=== PATIENT | male | born 1970 | race Caucasian/White ===

== ENCOUNTER 2019-12-22 09:56 | Inpatient (IN) | payer BC, MEDICAID ==
[~2019-12-22] VITALS: Ht 190.5 cm; Wt 126.3 kg
--- NOTE | 2019-12-22 10:14 | NUR ---
Transfer from [facility] for renal failure. Hx HTN, methamphetamine use, CHF, hepatitis (per transfer paperwork-pt denies)&1ppd smoking hx. +Orthopnea, s/s improved with elevation of HOB & 3 liters oxygen via NC. EKG performed at time of arrival. Cardiac, NiBP & SPO2 monitor applied. Call light within reach, SR up x 2. NS IV lock IP.
[2019-12-22] MEDS ORDERED: DEXAMETHASONE 4 MG/ML, 1ML PO ONE (11:00)
--- NOTE | 2019-12-22 11:03 | NUR ---
2nd IV est, labs drawn. COVID swab obtained, labeled & sent.
[2019-12-22 11:19] LABS: BASOPHILS # (AUTO) 0.04 x10^3/uL (0-0.1); BASOPHILS % (AUTO) 1 % (0-1); EOSINOPHILS # (AUTO) 0.17 x10^3/uL (0-0.4); EOSINOPHILS % (AUTO) 2 % (1-7); LYMPHOCYTES % (AUTO) 9 % (22-44); MD NO; MEAN CORPUSCULAR HEMOGLOBIN 27.7 pg (27.5-34.5); MEAN CORPUSCULAR HGB CONC 32.2 g/dL (33.2-36.2); MEAN CORPUSCULAR VOLUME 85.9 fL (81-97); MEAN PLATELET VOLUME 7.2 fL (7.4-10.4); MONOCYTES # (AUTO) 0.51 x10^3/uL (0.2-0.8); MONOCYTES % (AUTO) 7 % (2-9); NEUTROPHILS # (AUTO) 6.43 x10^3/uL (1.8-6.8); NEUTROPHILS % (AUTO) 82 % (42-75); PLATELET COUNT 298 x10^3/uL (130-400); RED BLOOD COUNT 3.23 x10^6/uL (4.38-5.82); RED CELL DISTRIBUTION WIDTH 14.4 % (9.4-14.8)
--- NOTE | 2019-12-22 11:28 | NUR ---
SPO2 intermittently decreases while at rest. Increases when awakened.
[2019-12-22 11:31] LABS: ALANINE AMINOTRANSFERASE 32 U/L (12-78); ALBUMIN 2.7 g/dL (3.4-5.0); ANION GAP 11 mmol/L (5-15); CALCIUM 6.4 mg/dL (8.5-10.1); CHLORIDE 113 mmol/L (98-107); CREATININE 7.38 mg/dL (0.7-1.3)
[2019-12-22 11:35] LABS: ALKALINE PHOSPHATASE 102 U/L (45-117); BILIRUBIN,TOTAL 0.4 mg/dL (0.2-1.0); TOTAL PROTEIN 6.5 g/dL (6.4-8.2)
--- NOTE | 2019-12-22 11:37 | NUR ---
critical value taken from lab, relayed to BAN Fallon.
[2019-12-22 11:38] LABS: TROPONIN I 0.296 ng/mL (0.000-0.045)
--- NOTE | 2019-12-22 12:11 | NUR ---
Pt seen by Dr. Wallace. Awaiting admit orders/bed assignment.
--- NOTE | 2019-12-22 12:29 | NUR ---
I&O recorded. UA sent & add'l labs drawn off of IV lock. Pt updated on POC. ECHO IP.
[2019-12-22] MEDS ORDERED: ACETAMINOPHEN 325 MG TABLET PO PRN (12:30)
[2019-12-22] MEDS ORDERED: CALCIUM GLUCONATE 4.6 MEQ/10 ML IVPush ONE (12:30)
[2019-12-22] MEDS ORDERED: ONDANSETRON 2MG/ML, 2ML IVPush PRN (12:30)
[2019-12-22] MEDS ORDERED: OXYcodone IR 5MG TABLET PO PRN (12:30)
[2019-12-22] MEDS ORDERED: ONDANSETRON ODT 4 MG PO PRN (12:30)
[2019-12-22 12:48] LABS: MICROSCOPIC AUTO
[2019-12-22 12:52] LABS: CHLORIDE,URINE RANDOM 52 mmol/L; POTASSIUM,URINE RANDOM 22 mmol/L; SODIUM,URINE RANDOM 66 mmol/L
[2019-12-22 12:56] LABS: CULTURE INDICATED? NO
--- NOTE | 2019-12-22 13:15 | NUR ---
Pt being set up for temporary dialysis catheter. Verb. consent given.
[2019-12-22] MEDS ORDERED: CALCIUM GLUCONATE 4.6 MEQ/10 ML ONE (13:23)
[2019-12-22] MEDS ORDERED: AMLODIPINE 5 MG TABLET ONE (13:23)
--- NOTE | 2019-12-22 13:34 | NUR ---
Radiologist here for insertion of temp. dialysis catheter. Report to STEPHANIE Mitchell
[2019-12-22 14:00] VITALS: BP 165/117
[2019-12-22] MEDS: AMLODIPINE 10 MG TAB PO SCH ×2 (14:06→14:49)
[2019-12-22] MEDS: BACLOFEN 10 MG TABLET PO PRN (14:06)
--- NOTE | 2019-12-22 14:07 | NUR ---
Per Dr. Richar [facility] due to dialysis being done today. Pt medicated for chronic back pain w/ baclofen po. Post dialysis catheter placement x-ray complete.
[2019-12-22] MEDS: HEPARIN 5,000 UNITS/ML, 1ML SQ SCH (15:09)
[2019-12-22] MEDS: hydrALAzine 20 MG/ML, 1ML IVPush PRN (16:16)
[2019-12-22 18:44] LABS: TROPONIN I 0.296 ng/mL (0.000-0.045)
[2019-12-22 21:47] VITALS: BP 145/92
[2019-12-22] MEDS: HYDROcodone/APAP 5/325 TABLET PO PRN (21:53)
[2019-12-22] MEDS: NICOTINE 14MG/24 HR PATCH.TD24 TD SCH (22:47)
[2019-12-22 22:50] VITALS: BP 163/91
[2019-12-23] MEDS: BACLOFEN 10 MG TABLET PO PRN (00:42)
[2019-12-23 00:46] LABS: TROPONIN I 0.271 ng/mL (0.000-0.045)
[2019-12-23 02:36] VITALS: BP 156/87
[2019-12-23] MEDS: HEPARIN 5,000 UNITS/ML, 1ML SQ SCH ×3 (03:05→19:21)
[2019-12-23 04:59] LABS: BASOPHILS # (AUTO) 0.04 x10^3/uL (0-0.1); BASOPHILS % (AUTO) 1 % (0-1); EOSINOPHILS % (AUTO) 3 % (1-7); LYMPHOCYTES # (AUTO) 0.99 x10^3/uL (1-3.4); LYMPHOCYTES % (AUTO) 14 % (22-44); MD NO; MEAN CORPUSCULAR HEMOGLOBIN 27.6 pg (27.5-34.5); MEAN CORPUSCULAR HGB CONC 32.1 g/dL (33.2-36.2); MEAN CORPUSCULAR VOLUME 85.9 fL (81-97); MEAN PLATELET VOLUME 7.2 fL (7.4-10.4); MONOCYTES # (AUTO) 0.68 x10^3/uL (0.2-0.8); MONOCYTES % (AUTO) 9 % (2-9); NEUTROPHILS # (AUTO) 5.41 x10^3/uL (1.8-6.8); NEUTROPHILS % (AUTO) 74 % (42-75); PLATELET COUNT 280 x10^3/uL (130-400); RED BLOOD COUNT 3.24 x10^6/uL (4.38-5.82); RED CELL DISTRIBUTION WIDTH 14.3 % (9.4-14.8)
[2019-12-23 05:08] LABS: ANION GAP 10 mmol/L (5-15); CALCIUM 7.1 mg/dL (8.5-10.1); CHLORIDE 110 mmol/L (98-107); CREATININE 6.09 mg/dL (0.7-1.3)
[2019-12-23] MEDS: HYDROcodone/APAP 5/325 TABLET PO PRN ×3 (06:28→19:22)
[2019-12-23 09:13] VITALS: BP 132/78
[2019-12-23] MEDS ORDERED: IRON DEXTRAN COMPLEX 25 MG in SODIUM CHLORIDE 0.9% 50 ML IV ONE (12:00)
[2019-12-23 12:04] VITALS: BP 173/108
[2019-12-23] MEDS: hydrALAzine 20 MG/ML, 1ML IVPush PRN (12:13)
[2019-12-23] MEDS ORDERED: EPINEPHRINE 1 MG/ML, 1ML SQ PRN (12:30)
[2019-12-23 12:54] VITALS: BP 149/87
[2019-12-23] MEDS ORDERED: IRON DEXTRAN COMPLEX 2,250 MG in SODIUM CHLORIDE 0.9% 250 ML IV ONE (13:30)
[2019-12-23] MEDS: METOPROLOL TARTRATE 25 MG TAB PO SCH (17:25)
[2019-12-23 18:58] VITALS: BP 135/82
[2019-12-23] MEDS ORDERED: DIPHENHYDRAMINE 25 MG CAPSULE PO ONE (23:00)
[2019-12-23] MEDS: NICOTINE 14MG/24 HR PATCH.TD24 TD SCH (23:12)
[2019-12-24 01:41] VITALS: BP 141/89
[2019-12-24] MEDS: HYDROcodone/APAP 5/325 TABLET PO PRN ×2 (02:49→18:24)
[2019-12-24] MEDS: HEPARIN 5,000 UNITS/ML, 1ML SQ SCH ×3 (03:32→20:16)
[2019-12-24] MEDS: METOPROLOL TARTRATE 25 MG TAB PO SCH ×2 (05:37→18:18)
[2019-12-24 06:10] LABS: BASOPHILS # (AUTO) 0.04 x10^3/uL (0-0.1); BASOPHILS % (AUTO) 1 % (0-1); EOSINOPHILS # (AUTO) 0.16 x10^3/uL (0-0.4); EOSINOPHILS % (AUTO) 2 % (1-7); LYMPHOCYTES # (AUTO) 1.03 x10^3/uL (1-3.4); LYMPHOCYTES % (AUTO) 14 % (22-44); MD NO; MEAN CORPUSCULAR HEMOGLOBIN 28.2 pg (27.5-34.5); MEAN CORPUSCULAR HGB CONC 32.4 g/dL (33.2-36.2); MEAN PLATELET VOLUME 7.8 fL (7.4-10.4); MONOCYTES # (AUTO) 0.77 x10^3/uL (0.2-0.8); MONOCYTES % (AUTO) 11 % (2-9); NEUTROPHILS # (AUTO) 5.18 x10^3/uL (1.8-6.8); NEUTROPHILS % (AUTO) 72 % (42-75); PLATELET COUNT 260 x10^3/uL (130-400); RED BLOOD COUNT 3.06 x10^6/uL (4.38-5.82); RED CELL DISTRIBUTION WIDTH 15.2 % (9.4-14.8)
[2019-12-24 06:26] LABS: CHLORIDE 109 mmol/L (98-107)
[2019-12-24 06:30] LABS: ANION GAP 7 mmol/L (5-15); CALCIUM 6.6 mg/dL (8.5-10.1); CREATININE 6.45 mg/dL (0.7-1.3)
[2019-12-24 06:33] VITALS: BP 153/100
[2019-12-24 12:19] VITALS: BP 155/95
[2019-12-24] MEDS: DOCUSATE 100 MG CAPSULE PO SCH ×2 (12:19→20:16)
[2019-12-24] MEDS: ARANESP 60 MCG/ML **ESRD SQ SCH (12:19)
[2019-12-24] MEDS: AMLODIPINE 10 MG TAB PO SCH (12:19)
[2019-12-24 18:20] VITALS: BP 148/86
[2019-12-24] MEDS: NICOTINE 14MG/24 HR PATCH.TD24 TD SCH (23:26)
[2019-12-25] MEDS: DIPHENHYDRAMINE 25 MG CAPSULE PO PRN ×2 (00:46→22:24)
[2019-12-25] MEDS: HYDROcodone/APAP 5/325 TABLET PO PRN ×3 (00:46→20:47)
[2019-12-25 01:09] VITALS: BP 144/82
[2019-12-25] MEDS: morphine SULFATE 10 MG/ML, 1ML IVPush PRN ×3 (01:41→23:24)
[2019-12-25] MEDS: HEPARIN 5,000 UNITS/ML, 1ML SQ SCH ×3 (05:04→20:20)
[2019-12-25] MEDS: METOPROLOL TARTRATE 25 MG TAB PO SCH ×2 (05:04→18:12)
[2019-12-25 06:08] LABS: BASOPHILS # (AUTO) 0.01 x10^3/uL (0-0.1); BASOPHILS % (AUTO) 0 % (0-1); EOSINOPHILS # (AUTO) 0.19 x10^3/uL (0-0.4); EOSINOPHILS % (AUTO) 3 % (1-7); LYMPHOCYTES # (AUTO) 1.14 x10^3/uL (1-3.4); LYMPHOCYTES % (AUTO) 17 % (22-44); MD NO; MEAN CORPUSCULAR HEMOGLOBIN 28.4 pg (27.5-34.5); MEAN CORPUSCULAR HGB CONC 32.9 g/dL (33.2-36.2); MEAN CORPUSCULAR VOLUME 86.1 fL (81-97); MEAN PLATELET VOLUME 7.9 fL (7.4-10.4); MONOCYTES # (AUTO) 0.56 x10^3/uL (0.2-0.8); MONOCYTES % (AUTO) 8 % (2-9); NEUTROPHILS # (AUTO) 4.96 x10^3/uL (1.8-6.8); NEUTROPHILS % (AUTO) 72 % (42-75); PLATELET COUNT 232 x10^3/uL (130-400); RED BLOOD COUNT 3.06 x10^6/uL (4.38-5.82); RED CELL DISTRIBUTION WIDTH 14.7 % (9.4-14.8)
[2019-12-25 06:16] LABS: ANION GAP 7 mmol/L (5-15); CALCIUM 7.2 mg/dL (8.5-10.1); CHLORIDE 110 mmol/L (98-107); CREATININE 5.47 mg/dL (0.7-1.3)
[2019-12-25 06:41] VITALS: BP 156/92
[2019-12-25] MEDS: AMLODIPINE 10 MG TAB PO SCH (08:02)
[2019-12-25] MEDS: DOCUSATE 100 MG CAPSULE PO SCH ×2 (08:02→20:20)
[2019-12-25] MEDS: FERROUS SULFATE 325 MG TABLET PO SCH (08:02)
[2019-12-25 12:04] VITALS: BP 159/88
[2019-12-25 18:47] VITALS: BP 154/82
[2019-12-25] MEDS: NICOTINE 14MG/24 HR PATCH.TD24 TD SCH (22:24)
[2019-12-26 02:31] VITALS: BP 161/88
[2019-12-26] MEDS: morphine SULFATE 10 MG/ML, 1ML IVPush PRN ×2 (02:35→20:28)
[2019-12-26] MEDS: METOPROLOL TARTRATE 25 MG TAB PO SCH ×2 (05:23→17:28)
[2019-12-26] MEDS: HEPARIN 5,000 UNITS/ML, 1ML SQ SCH ×3 (05:23→20:28)
[2019-12-26 06:18] VITALS: BP 163/110
[2019-12-26] MEDS: hydrALAzine 20 MG/ML, 1ML IVPush PRN (06:23)
[2019-12-26 06:24] LABS: BASOPHILS # (AUTO) 0.04 x10^3/uL (0-0.1); BASOPHILS % (AUTO) 1 % (0-1); EOSINOPHILS # (AUTO) 0.19 x10^3/uL (0-0.4); EOSINOPHILS % (AUTO) 3 % (1-7); LYMPHOCYTES # (AUTO) 1.05 x10^3/uL (1-3.4); LYMPHOCYTES % (AUTO) 15 % (22-44); MD NO; MEAN CORPUSCULAR HGB CONC 32.1 g/dL (33.2-36.2); MEAN CORPUSCULAR VOLUME 87.2 fL (81-97); MEAN PLATELET VOLUME 7.5 fL (7.4-10.4); MONOCYTES # (AUTO) 0.68 x10^3/uL (0.2-0.8); MONOCYTES % (AUTO) 10 % (2-9); NEUTROPHILS # (AUTO) 5.07 x10^3/uL (1.8-6.8); NEUTROPHILS % (AUTO) 72 % (42-75); PLATELET COUNT 233 x10^3/uL (130-400); RED CELL DISTRIBUTION WIDTH 14.7 % (9.4-14.8)
[2019-12-26 06:39] LABS: CHLORIDE 111 mmol/L (98-107)
[2019-12-26 06:45] LABS: ANION GAP 7 mmol/L (5-15); CALCIUM 7.7 mg/dL (8.5-10.1); CREATININE 5.89 mg/dL (0.7-1.3)
[2019-12-26 12:25] VITALS: BP 177/100
[2019-12-26] MEDS: DOCUSATE 100 MG CAPSULE PO SCH ×2 (12:44→20:29)
[2019-12-26] MEDS: AMLODIPINE 10 MG TAB PO SCH (12:44)
[2019-12-26] MEDS: FERROUS SULFATE 325 MG TABLET PO SCH (12:48)
[2019-12-26 15:50] VITALS: BP 145/75
[2019-12-26 20:19] VITALS: BP 191/113
[2019-12-26] MEDS: DIPHENHYDRAMINE 25 MG CAPSULE PO PRN (20:29)
[2019-12-26] MEDS: DOXAZOSIN 1MG TABLET PO SCH (20:31)
[2019-12-27] MEDS: morphine SULFATE 10 MG/ML, 1ML IVPush PRN ×2 (00:29→03:35)
[2019-12-27] MEDS: NICOTINE 14MG/24 HR PATCH.TD24 TD SCH ×2 (00:29→23:00)
[2019-12-27 00:30] VITALS: BP 175/92
[2019-12-27] MEDS: hydrALAzine 20 MG/ML, 1ML IVPush PRN (00:34)
[2019-12-27 03:49] LABS: BASOPHILS # (AUTO) 0.05 x10^3/uL (0-0.1); BASOPHILS % (AUTO) 1 % (0-1); EOSINOPHILS # (AUTO) 0.19 x10^3/uL (0-0.4); EOSINOPHILS % (AUTO) 3 % (1-7); LYMPHOCYTES # (AUTO) 0.97 x10^3/uL (1-3.4); LYMPHOCYTES % (AUTO) 14 % (22-44); MD NO; MEAN CORPUSCULAR HEMOGLOBIN 27.9 pg (27.5-34.5); MEAN CORPUSCULAR HGB CONC 32.5 g/dL (33.2-36.2); MEAN CORPUSCULAR VOLUME 85.9 fL (81-97); MEAN PLATELET VOLUME 7.7 fL (7.4-10.4); MONOCYTES # (AUTO) 0.82 x10^3/uL (0.2-0.8); MONOCYTES % (AUTO) 12 % (2-9); NEUTROPHILS # (AUTO) 5.05 x10^3/uL (1.8-6.8); NEUTROPHILS % (AUTO) 71 % (42-75); PLATELET COUNT 208 x10^3/uL (130-400); RED BLOOD COUNT 3.22 x10^6/uL (4.38-5.82); RED CELL DISTRIBUTION WIDTH 14.9 % (9.4-14.8)
[2019-12-27 03:56] LABS: ALANINE AMINOTRANSFERASE 27 U/L (12-78); ALBUMIN 2.9 g/dL (3.4-5.0); ANION GAP 6 mmol/L (5-15); CALCIUM 7.7 mg/dL (8.5-10.1); CHLORIDE 109 mmol/L (98-107); CREATININE 5.15 mg/dL (0.7-1.3)
[2019-12-27 03:58] LABS: ALKALINE PHOSPHATASE 93 U/L (45-117); BILIRUBIN,TOTAL 0.2 mg/dL (0.2-1.0)
[2019-12-27] MEDS: METOPROLOL TARTRATE 25 MG TAB PO SCH ×2 (05:12→18:31)
[2019-12-27] MEDS: HEPARIN 5,000 UNITS/ML, 1ML SQ SCH ×3 (05:12→21:25)
[2019-12-27 07:31] VITALS: BP 152/96
[2019-12-27] MEDS: AMLODIPINE 10 MG TAB PO SCH (08:03)
[2019-12-27] MEDS: FERROUS SULFATE 325 MG TABLET PO SCH (08:03)
[2019-12-27] MEDS: DOCUSATE 100 MG CAPSULE PO SCH ×2 (08:03→21:25)
[2019-12-27] MEDS: HYDROcodone/APAP 5/325 TABLET PO PRN (08:13)
[2019-12-27 14:01] LABS: AMPHETAMINE SCREEN, URINE Negative (Negative); BARBITURATE SCREEN, URINE Negative (Negative); BENZODIAZEPINE SCREEN, URINE Negative (Negative); CANNABINOID SCREEN, URINE Negative (Negative); COCAINE SCREEN, URINE Negative (Negative); METHADONE SCREEN, URINE Negative (Negative); OPIATE SCREEN, URINE Positive (Negative)
[2019-12-27 14:15] VITALS: BP 162/97
[2019-12-27 20:07] VITALS: BP 165/110
[2019-12-27] MEDS: DOXAZOSIN 1MG TABLET PO SCH (21:26)
[2019-12-28 00:18] VITALS: BP 145/85
[2019-12-28] MEDS: morphine SULFATE 10 MG/ML, 1ML IVPush PRN ×5 (02:20→23:55)
[2019-12-28] MEDS: METOPROLOL TARTRATE 25 MG TAB PO SCH ×2 (05:27→17:19)
[2019-12-28] MEDS: HEPARIN 5,000 UNITS/ML, 1ML SQ SCH ×3 (05:28→21:00)
[2019-12-28 05:58] LABS: BASOPHILS # (AUTO) 0.05 x10^3/uL (0-0.1); BASOPHILS % (AUTO) 1 % (0-1); EOSINOPHILS # (AUTO) 0.25 x10^3/uL (0-0.4); EOSINOPHILS % (AUTO) 4 % (1-7); LYMPHOCYTES # (AUTO) 1.15 x10^3/uL (1-3.4); LYMPHOCYTES % (AUTO) 16 % (22-44); MD NO; MEAN CORPUSCULAR HEMOGLOBIN 28.2 pg (27.5-34.5); MEAN CORPUSCULAR HGB CONC 32.9 g/dL (33.2-36.2); MEAN CORPUSCULAR VOLUME 85.8 fL (81-97); MEAN PLATELET VOLUME 7.9 fL (7.4-10.4); MONOCYTES # (AUTO) 0.63 x10^3/uL (0.2-0.8); MONOCYTES % (AUTO) 9 % (2-9); NEUTROPHILS # (AUTO) 5.09 x10^3/uL (1.8-6.8); NEUTROPHILS % (AUTO) 71 % (42-75); PLATELET COUNT 216 x10^3/uL (130-400); RED BLOOD COUNT 3.25 x10^6/uL (4.38-5.82); RED CELL DISTRIBUTION WIDTH 14.9 % (9.4-14.8)
[2019-12-28 06:03] LABS: ANION GAP 8 mmol/L (5-15); CALCIUM 8.1 mg/dL (8.5-10.1); CHLORIDE 110 mmol/L (98-107); CREATININE 5.98 mg/dL (0.7-1.3)
[2019-12-28] MEDS: DOCUSATE 100 MG CAPSULE PO SCH ×2 (09:00→20:58)
[2019-12-28 12:49] VITALS: BP 158/99
[2019-12-28] MEDS ORDERED: LIDOCAINE 1%, 20ML ONE (15:07)
[2019-12-28] MEDS ORDERED: FLUMAZENIL 0.1 MG/1 ML, 5ML ONE (15:22)
[2019-12-28] MEDS ORDERED: FENTANYL PF 100 MCG/2ML ONE (15:22)
[2019-12-28] MEDS ORDERED: NALOXONE 1 MG/ML, 2ML ONE (15:22)
[2019-12-28] MEDS ORDERED: MIDAZOLAM 1 MG/ML, 5ML ONE (15:22)
[2019-12-28] MEDS ORDERED: CEFAZOLIN PMX 1GM/50ML 50 ML ONE (15:28)
[2019-12-28] MEDS: FERROUS SULFATE 325 MG TABLET PO SCH (17:18)
[2019-12-28] MEDS: AMLODIPINE 10 MG TAB PO SCH (17:18)
[2019-12-28 19:19] VITALS: BP 125/75
[2019-12-28] MEDS: DOXAZOSIN 1MG TABLET PO SCH (21:00)
[2019-12-28] MEDS: NICOTINE 14MG/24 HR PATCH.TD24 TD SCH (23:14)
[2019-12-29 01:28] VITALS: BP 129/72
[2019-12-29] MEDS: morphine SULFATE 10 MG/ML, 1ML IVPush PRN ×3 (03:06→21:52)
[2019-12-29] MEDS: HEPARIN 5,000 UNITS/ML, 1ML SQ SCH ×3 (05:50→20:21)
[2019-12-29] MEDS: METOPROLOL TARTRATE 25 MG TAB PO SCH ×2 (05:51→18:05)
[2019-12-29 08:33] VITALS: BP 126/81
[2019-12-29] MEDS: DOCUSATE 100 MG CAPSULE PO SCH ×2 (08:43→20:21)
[2019-12-29] MEDS: FERROUS SULFATE 325 MG TABLET PO SCH (08:43)
[2019-12-29] MEDS: AMLODIPINE 10 MG TAB PO SCH (08:43)
[2019-12-29] MEDS: MULTIVITS,STRESS FORMULA 1 TABLET PO SCH (08:43)
[2019-12-29] MEDS: CHOLECALCIFEROL 400 UNITS TABLET PO SCH (08:43)
[2019-12-29] MEDS: ASCORBIC ACID 500 MG TABLET PO SCH ×2 (08:45→18:06)
[2019-12-29 14:06] VITALS: BP 111/67
[2019-12-29 19:03] VITALS: BP 120/80
[2019-12-29 19:22] VITALS: BP 156/93
[2019-12-29] MEDS: DOXAZOSIN 1MG TABLET PO SCH (20:21)
[2019-12-29] MEDS: NICOTINE 14MG/24 HR PATCH.TD24 TD SCH (22:46)
[2019-12-30] MEDS: morphine SULFATE 10 MG/ML, 1ML IVPush PRN ×2 (01:19→04:45)
[2019-12-30 02:00] VITALS: BP 130/85
[2019-12-30] MEDS: HEPARIN 5,000 UNITS/ML, 1ML SQ SCH ×2 (05:55→17:24)
[2019-12-30] MEDS: METOPROLOL TARTRATE 25 MG TAB PO SCH ×2 (05:57→17:26)
[2019-12-30 06:15] VITALS: BP 132/82
[2019-12-30 06:28] LABS: BASOPHILS # (AUTO) 0.04 x10^3/uL (0-0.1); BASOPHILS % (AUTO) 1 % (0-1); EOSINOPHILS # (AUTO) 0.24 x10^3/uL (0-0.4); EOSINOPHILS % (AUTO) 3 % (1-7); LYMPHOCYTES # (AUTO) 1.35 x10^3/uL (1-3.4); LYMPHOCYTES % (AUTO) 17 % (22-44); MD NO; MEAN CORPUSCULAR HEMOGLOBIN 28.1 pg (27.5-34.5); MEAN CORPUSCULAR HGB CONC 32.3 g/dL (33.2-36.2); MEAN CORPUSCULAR VOLUME 86.9 fL (81-97); MEAN PLATELET VOLUME 7.3 fL (7.4-10.4); MONOCYTES # (AUTO) 0.88 x10^3/uL (0.2-0.8); MONOCYTES % (AUTO) 11 % (2-9); NEUTROPHILS # (AUTO) 5.31 x10^3/uL (1.8-6.8); NEUTROPHILS % (AUTO) 68 % (42-75); PLATELET COUNT 205 x10^3/uL (130-400); RED CELL DISTRIBUTION WIDTH 14.9 % (9.4-14.8)
[2019-12-30 06:40] LABS: ALBUMIN 3.1 g/dL (3.4-5.0); ANION GAP 9 mmol/L (5-15); CALCIUM 7.7 mg/dL (8.5-10.1); CHLORIDE 106 mmol/L (98-107)
[2019-12-30 06:41] LABS: CREATININE 6.54 mg/dL (0.7-1.3)
[2019-12-30 08:26] VITALS: BP 149/84
[2019-12-30] MEDS: AMLODIPINE 10 MG TAB PO SCH (08:28)
[2019-12-30] MEDS: DOCUSATE 100 MG CAPSULE PO SCH ×2 (08:28→21:20)
[2019-12-30] MEDS: CHOLECALCIFEROL 400 UNITS TABLET PO SCH (08:28)
[2019-12-30] MEDS: MULTIVITS,STRESS FORMULA 1 TABLET PO SCH (08:28)
[2019-12-30] MEDS: FERROUS SULFATE 325 MG TABLET PO SCH (08:29)
[2019-12-30] MEDS: ASCORBIC ACID 500 MG TABLET PO SCH ×2 (08:29→17:24)
[2019-12-30 12:04] VITALS: BP 133/66
[2019-12-30] MEDS ORDERED: POLYETHYLENE GLYCOL 17 GM PACKET ONE (17:58)
[2019-12-30] MEDS ORDERED: BISACODYL 10 MG SUPP PR PRN (18:00)
[2019-12-30] MEDS: POLYETHYLENE GLYCOL 17 GM PACKET PO PRN (18:00)
[2019-12-30 18:58] VITALS: BP 130/80
[2019-12-30] MEDS: DOXAZOSIN 1MG TABLET PO SCH (21:19)
[2019-12-30] MEDS: NICOTINE 14MG/24 HR PATCH.TD24 TD SCH (23:29)
[2019-12-31 00:39] VITALS: BP 137/86
[2019-12-31] MEDS: HEPARIN 5,000 UNITS/ML, 1ML SQ SCH ×3 (01:16→16:16)
[2019-12-31] MEDS: morphine SULFATE 10 MG/ML, 1ML IVPush PRN ×2 (01:20→06:17)
[2019-12-31] MEDS: METOPROLOL TARTRATE 25 MG TAB PO SCH ×2 (05:24→16:16)
[2019-12-31 06:40] VITALS: BP 121/74
[2019-12-31] MEDS: MULTIVITS,STRESS FORMULA 1 TABLET PO SCH (07:54)
[2019-12-31] MEDS: ASCORBIC ACID 500 MG TABLET PO SCH ×2 (07:54→16:15)
[2019-12-31] MEDS: FERROUS SULFATE 325 MG TABLET PO SCH (07:54)
[2019-12-31] MEDS: CHOLECALCIFEROL 400 UNITS TABLET PO SCH (07:54)
[2019-12-31] MEDS: DOCUSATE 100 MG CAPSULE PO SCH ×2 (07:54→20:54)
[2019-12-31] MEDS: AMLODIPINE 10 MG TAB PO SCH (07:54)
[2019-12-31] MEDS: ARANESP 60 MCG/ML **ESRD SQ SCH (12:01)
[2019-12-31 12:10] VITALS: BP 121/75
[2019-12-31 19:13] VITALS: BP 153/85
[2019-12-31] MEDS: DOXAZOSIN 1MG TABLET PO SCH (20:54)
[2019-12-31 20:56] VITALS: BP 133/77
[2020-01-01] MEDS: HEPARIN 5,000 UNITS/ML, 1ML SQ SCH ×4 (00:09→23:34)
[2020-01-01] MEDS: NICOTINE 14MG/24 HR PATCH.TD24 TD SCH ×2 (00:10→20:19)
[2020-01-01 00:18] VITALS: BP 120/74
[2020-01-01] MEDS: HYDROcodone/APAP 5/325 TABLET PO PRN (00:52)
[2020-01-01 05:37] VITALS: BP 153/88
[2020-01-01] MEDS: METOPROLOL TARTRATE 25 MG TAB PO SCH ×2 (05:38→16:59)
[2020-01-01 07:25] VITALS: BP 113/69
[2020-01-01] MEDS: CHOLECALCIFEROL 400 UNITS TABLET PO SCH (08:02)
[2020-01-01] MEDS: FERROUS SULFATE 325 MG TABLET PO SCH (08:02)
[2020-01-01] MEDS: DOCUSATE 100 MG CAPSULE PO SCH ×2 (08:02→20:17)
[2020-01-01] MEDS: ASCORBIC ACID 500 MG TABLET PO SCH ×2 (08:02→16:59)
[2020-01-01] MEDS: AMLODIPINE 10 MG TAB PO SCH (08:02)
[2020-01-01] MEDS: MULTIVITS,STRESS FORMULA 1 TABLET PO SCH (08:02)
[2020-01-01 08:03] LABS: ALBUMIN 3.3 g/dL (3.4-5.0); ANION GAP 9 mmol/L (5-15); CALCIUM 8.1 mg/dL (8.5-10.1); CHLORIDE 106 mmol/L (98-107)
[2020-01-01 14:29] VITALS: BP 106/69
[2020-01-01 16:58] VITALS: BP 105/71
[2020-01-01 20:08] VITALS: BP 132/84
[2020-01-01] MEDS: DOXAZOSIN 1MG TABLET PO SCH (20:17)
[2020-01-02 02:00] VITALS: BP 148/82
[2020-01-02] MEDS: POLYETHYLENE GLYCOL 17 GM PACKET PO PRN (02:19)
[2020-01-02] MEDS: METOPROLOL TARTRATE 25 MG TAB PO SCH (05:17)
[2020-01-02 07:18] VITALS: BP 138/79
[2020-01-02] MEDS: CHOLECALCIFEROL 400 UNITS TABLET PO SCH (08:01)
[2020-01-02] MEDS: AMLODIPINE 10 MG TAB PO SCH (08:01)
[2020-01-02] MEDS: DOCUSATE 100 MG CAPSULE PO SCH (08:01)
[2020-01-02] MEDS: FERROUS SULFATE 325 MG TABLET PO SCH (08:01)
[2020-01-02] MEDS: ASCORBIC ACID 500 MG TABLET PO SCH (08:01)
[2020-01-02] MEDS: MULTIVITS,STRESS FORMULA 1 TABLET PO SCH (08:01)
[2020-01-02] MEDS: HEPARIN 5,000 UNITS/ML, 1ML SQ SCH (08:02)
[2020-01-02] MEDS ORDERED: ERGOCALCIFEROL 50,000 UNIT CAPSULE PO SCH (11:30)
[2020-01-02] MEDS ORDERED: CARVEDILOL 6.25 MG TABLET PO SCH (18:00)
[2020-01-02] MEDS ORDERED: DOXAZOSIN 1MG TABLET PO SCH ×2 (21:00)
== END 2020-01-02 13:51 | disposition left against medical advice (07) | DRG 682 ==
LOC: ED 10:01 → SUATTDRO 11:43 → EDIP 12:11 → ICU 14:23 → 4EST 22:40
PROVIDERS: ADMIT Hospitalist; ATTEND Family Medicine
PROC: 02HV33Z Insertion of Infusion Device into Superior Vena Cava, Percutaneous Approach (ICD-10-PCS; principal; 2019-12-22)
PROC: B548ZZA Ultrasonography of Superior Vena Cava, Guidance (ICD-10-PCS; 2019-12-22)
PROC: 05HY33Z Insertion of Infusion Device into Upper Vein, Percutaneous Approach (ICD-10-PCS; 2019-12-28)
PROC: B543ZZA Ultrasonography of Right Jugular Veins, Guidance (ICD-10-PCS; 2019-12-28)
PROC: B5131ZA Fluoroscopy of Right Jugular Veins using Low Osmolar Contrast, Guidance (ICD-10-PCS; 2019-12-28)
DX: N17.9 Acute kidney failure, unspecified (principal); J96.01 Acute respiratory failure with hypoxia; E87.2 Acidosis; I13.2 Hypertensive heart and chronic kidney disease with heart failure and with stage 5 chronic kidney disease, or end stage renal disease; N18.6 End stage renal disease; D50.9 Iron deficiency anemia, unspecified; D63.8 Anemia in other chronic diseases classified elsewhere; E78.00 Pure hypercholesterolemia, unspecified; E83.51 Hypocalcemia; E87.5 Hyperkalemia; F15.10 Other stimulant abuse, uncomplicated; F17.200 Nicotine dependence, unspecified, uncomplicated; Z53.29 Procedure and treatment not carried out because of patient's decision for other reasons; G89.29 Other chronic pain; I36.1 Nonrheumatic tricuspid (valve) insufficiency; N32.89 Other specified disorders of bladder; I50.9 Heart failure, unspecified; Z78.9 Other specified health status; Z79.899 Other long term (current) drug therapy; Z91.19 Patient's noncompliance with other medical treatment and regimen; Z71.6 Tobacco abuse counseling; Z03.818 Encounter for observation for suspected exposure to other biological agents ruled out
CPT/HCPCS: 36415; 77001; 96374; 96375; 99285; J3490; 36556; 36558; 71045; 76700; 76770; 76937; 80048; 80053; 80069; 80307; 81001; 82306; 82330; 82436; 82550; 82728; 83540; 83550; 83735; 83880; 84100; 84133; 84300; 84443; 84484; 85025; 86480; 86704; 86705; 86706; 86709; 86803; 87081; 87340; 90935; 93005; 93308; 93321; 93325; 99156; 99157; C1894; G0378; J0690; J0882; J1644; J1750; J2250; J3010; Q0162; C1750; C1751; J0360; J0610; J1642; J2270; J2310; J7050; Q0163